=== PATIENT | female | born 1970 | race Hispanic/Latino ===

== ENCOUNTER 2022-10-14 20:21 | Emergency (ER) | payer SELFPAY ==
[~2022-10-14 20:21] MED LIST: Iopamidol 370 76% 100 ML VIAL ONE
[2022-10-14] MEDS ORDERED: Sodium Chloride 0.9% 1,000 ML ONE (20:50)
[2022-10-14] MEDS ORDERED: Morphine 4 MG/ML VIAL ONE (20:50)
[2022-10-14] MEDS ORDERED: Ondansetron PF 4 MG/2 ML Vial ONE (20:51)
[2022-10-14] MEDS ORDERED: Pantoprazole 40 MG VIAL ONE (20:51)
[2022-10-14 20:54] LABS: #Eosinphils 0.1 thou/uL (0.0-0.7); #Lymphocytes 1.3 thou/uL (1.20-3.40); #Monocytes 0.7 thou/uL (0.11-0.59); #Neutrophils 5.3 thou/uL (1.40-6.50); %Basophils 0.6 % (0.0-1.0); %Eosinophils 1.8 % (0.0-10.0); %Lymphocytes 17.4 % (21.0-51.0); %Monocytes 9.3 % (0.0-10.0); %Neutrophils 70.9 % (42.0-75.0); Hemoglobin 11.5 g/dL (12.0-16.0); Mean Corpuscular HGB CONC 30.7 g/dL (32.0-36.0); Mean Corpuscular Hemoglobin 21.7 pg (27.0-31.0); Mean Corpuscular Volume 70.9 fl (78.0-98.0); Mean Platelet Volume 10.2 fL (7.4-10.4); Platelet Count 163 10x3/uL (130-400); RBC Distribution Width 20.1 % (11.5-14.5); Red Blood Cell (RBC) Count 5.29 mill/uL (4.20-5.40); White Blood Cell (WBC) Count 7.5 10x3/uL (4.8-10.8)
[2022-10-14 21:11] LABS: ALT (SGPT) 22 U/L (8-55); AST (SGOT) 18 U/L (5-34); Albumin 4.1 g/dL (3.5-5.0); Alkaline Phosphatase 89 U/L (40-110); Anion Gap 14 mmol/L (10-20); BUN (Urea Nitrogen) 14 mg/dL (9.8-20.1); Bilirubin, Total 0.4 mg/dL (0.2-1.2); Calc. Creatinine Clearance 0 mL/min (70-130); Calcium 8.6 mg/dL (7.8-10.44); Carbon Dioxide 22 mmol/L (22-29); Chloride 105 mmol/L (98-107); Estimated GFR 105; Globulin 3.5 g/dL (2.4-3.5); Glucose 111 mg/dL (70-105); Lipase 35 U/L (8-78); Potassium 3.7 mmol/L (3.5-5.1); Protein, Total 7.6 g/dL (6.0-8.3); Sodium 137 mmol/L (136-145)
[2022-10-14] MEDS ORDERED: Ketorolac Tromethamine 30 MG/ML VIAL ONE (21:35)
[2022-10-14 22:04] LABS: Bilirubin Negative (Negative); Blood, Urine Small (Negative); Clarity Clear (Clear); Glucose, Urine (Dipstick) Negative (Negative); Ketone, Urine Negative (Negative); Leukocyte Negative (Negative); Nitrite Negative (Negative); Protein, Urine (Dipstick) Negative (Neg-Trace); Specific Gravity, Urine 1.025 (1.005-1.030); Urobilinogen 0.2 mg/dL (Less than 2)
[2022-10-14 22:07] LABS: Bacteria/HPF None Seen HPF (None Seen); CAUTI Indications for Culture Dysuria,urgency,freq; RBC/HPF 0-3 HPF (0-3); Squamous Epithelial 0-3 HPF (0-3); Urine Culture Reflex No No; WBC/HPF None Seen HPF (0-3)
[2022-10-14] MEDS ORDERED: Piperacillin/Tazobactam 4.5 GM VIAL ONE (22:56)
[2022-10-14] MEDS ORDERED: Sodium Chloride 0.9% 100 ML ONE (22:57)
[2022-10-15] MEDS ORDERED: Heparin 5,000 UNITS/ML VIAL ONE (00:59)
[2022-10-15] MEDS ORDERED: Heparin 25,000 units/D5W 500 ML ONE (00:59)
[2022-10-15] MEDS ORDERED: fentaNYL 50 mcg/mL 1 mL Vial ONE (01:12)
== END 2022-10-15 01:30 | disposition short-term general hospital (02) ==
LOC: NAV ERS 20:21
DX: K80.20 Calculus of gallbladder without cholecystitis without obstruction (principal); K55.069 Acute infarction of intestine, part and extent unspecified
CPT/HCPCS: 74177; 80053; 81001; 83690; 84484; 85025; 93005; 96361; 96365; 96375; C9113; J1644; J1885; J2270; J2405; J2543; J3010; J3490; J7050; Q9967

== ENCOUNTER 2024-04-02 00:43 | Emergency (ER) | payer OTHER ==
[2024-04-02] MEDS ORDERED: Sodium Chloride 0.9% 1,000 ML ONE (01:00)
[2024-04-02] MEDS ORDERED: Morphine 4 MG/ML VIAL ONE (01:00)
[2024-04-02] MEDS ORDERED: Ondansetron PF 4 MG/2 ML Vial ONE (01:00)
[2024-04-02 01:11] LABS: #Lymphocytes 0.5 thou/uL (1.20-3.40); #Monocytes 0.4 thou/uL (0.11-0.59); %Basophils 0.2 % (0.0-1.0); %Eosinophils 0.1 % (0.0-10.0); %Lymphocytes 5.1 % (21.0-51.0); %Monocytes 4.2 % (0.0-10.0); %Neutrophils 90.5 % (42.0-75.0); Hematocrit 42.5 % (36.0-47.0); Mean Corpuscular HGB CONC 30.6 g/dL (32.0-36.0); Mean Corpuscular Hemoglobin 23.4 pg (27.0-31.0); Mean Corpuscular Volume 76.5 fl (78.0-98.0); Mean Platelet Volume 9.4 fL (7.4-10.4); Platelet Count 210 10x3/uL (130-400); RBC Distribution Width 15.8 % (11.5-14.5); Red Blood Cell (RBC) Count 5.56 mill/uL (4.20-5.40); White Blood Cell (WBC) Count 8.8 10x3/uL (4.8-10.8)
[2024-04-02 01:16] LABS: Bilirubin Large (Negative); Blood, Urine Moderate (Negative); Glucose, Urine (Dipstick) 100 mg/dL (Negative); Ketone, Urine Trace mg/dL (Negative); Leukocyte Trace (Negative); Nitrite Negative (Negative); Protein, Urine (Dipstick) 30 mg/dL (Neg-Trace); Specific Gravity, Urine 1.025 (1.005-1.030); Urobilinogen > or = 8.0 mg/dL (Less than 2); pH, Urine 5.5 (5.0-9.0)
[2024-04-02 01:23] LABS: Clarity Hazy (Clear)
[2024-04-02 01:27] LABS: CAUTI Indications for Culture Pelvic or flank pain
[2024-04-02 01:28] LABS: ALT (SGPT) 678 U/L (8-55); AST (SGOT) 429 U/L (5-34); Albumin 3.4 g/dL (3.5-5.0); Alkaline Phosphatase 461 U/L (40-110); Anion Gap 16 mmol/L (10-20); BUN (Urea Nitrogen) 10 mg/dL (9.8-20.1); Bilirubin, Total 2.5 mg/dL (0.2-1.2); Calc. Creatinine Clearance 0 mL/min (70-130); Calcium 9.1 mg/dL (7.8-10.44); Carbon Dioxide 21 mmol/L (22-29); Chloride 103 mmol/L (98-107); Estimated GFR 104; Globulin 4.9 g/dL (2.4-3.5); Glucose 200 mg/dL (70-105); Potassium 3.8 mmol/L (3.5-5.1); Protein, Total 8.3 g/dL (6.0-8.3); Sodium 136 mmol/L (136-145); Troponin I Less than 0.010 ng/mL (< 0.028)
[2024-04-02 01:29] LABS: Bacteria/HPF Rare-Few HPF (None Seen); Mucous/LPF 1+ LPF (<2+); Yeast-Budding Rare HPF (None Seen)
[2024-04-02 01:30] LABS: Urine Culture Reflex No No
[2024-04-02 01:31] LABS: BHCG - Serum Negative (NEGATIVE); Pregs Control Bar Appear? YES (CONTROL BAR)
[2024-04-02 02:38] LABS: Lipase 5172 U/L (8-78)
[2024-04-02] MEDS ORDERED: Iopamidol 370 76% 100 ML VIAL ONE (09:00)
== END 2024-04-02 08:53 | disposition short-term general hospital (02) ==
LOC: NAV ERS 00:43
DX: K85.90 Acute pancreatitis without necrosis or infection, unspecified (principal); R74.01 Elevation of levels of liver transaminase levels; E11.9 Type 2 diabetes mellitus without complications
CPT/HCPCS: 74174; 80053; 81001; 83605; 83690; 84484; 84703; 85025; 93005; 96374; 96375; J2272; J2405; J7030; Q9967